=== PATIENT | female | born 1960 | race Caucasian/White ===

== ENCOUNTER 2019-01-30 18:04 | Inpatient (IN) | payer MEDICARE, MEDICAID | END 2019-02-02 11:32 | disposition home or self-care (01) | LOC: ORTHO 4S 01-31 00:35 → ER 18:04 → ED HOLD 22:31 | DX: I95.9 Hypotension, unspecified (principal); N39.0 Urinary tract infection, site not specified; G45.9 Transient cerebral ischemic attack, unspecified ==

== ENCOUNTER 2020-03-23 13:56 | Outpatient (CLI) | payer MEDICARE ==
[~2020-03-23 13:56] MED LIST: ARIP400S2 IM; ASPI-1265 PO; BUDE10.22 INH; DULA0.75 SQ; ESZO3TAB66 PO; FURO-150 PO; IRBE75TA30 PO; LEVO100T9 PO; METO25TA6 PO; ONDA4TAB6 PO; ROSU10TA2 PO
[2020-03-23] MEDS ORDERED: FLUO40CA PO (15:32)
[2020-03-23] MEDS ORDERED: LOSA25TA41 PO (15:32)
[2020-03-23] MEDS ORDERED: QUET200T30 PO (15:32)
[2020-03-23] MEDS ORDERED: HYDR-3927 PO (15:32)
[2020-03-23] MEDS ORDERED: LEVO125T8 PO (15:32)
[2020-03-23] MEDS ORDERED: LIRA0.6P2 SQ (15:32)
[2020-03-23] MEDS ORDERED: LAMO100T65 PO (15:33)
[2020-03-23] MEDS ORDERED: OXYM30SP26 BOTHNARES (15:34)
[2020-03-23 15:41] LABS: COLOR,URINE YELLOW (Yellow); GLUCOSE, URINE NEGATIVE (Neg); KETONES,URINE NEGATIVE (Neg); LEUKOCYTE ESTERASE ,URINE SMALL (Neg); NITRITES, URINE NEGATIVE (Neg); OCCULT BLOOD,URINE NEGATIVE (Neg); PROTEIN,URINE NEGATIVE (Neg); UROBILINOGEN,URINE 0.2 E.U/dL (0.2-1.0)
[2020-03-23 15:41] LABS: BASOPHILS # (AUTO) 0.1 X10'3 (0-0.2); BASOPHILS % (AUTO) 1.2 % (0-1); EOSINOPHILS # (AUTO) 0.2 X10'3 (0-0.9); EOSINOPHILS % (AUTO) 3.4 % (0-6); LYMPHOCYTES # (AUTO) 1.4 X10'3 (1.1-4.8); LYMPHOCYTES % (AUTO) 21.2 % (21-51); MEAN CORPUSCULAR HEMOGLOBIN 28.7 PG (27.0-31.0); MEAN CORPUSCULAR HGB CONC 32.7 g/dL (33.0-36.5); MEAN CORPUSCULAR VOLUME 87.7 FL (78-98); MEAN PLATELET VOLUME 9.3 FL (7.4-10.4); MONOCYTES # (AUTO) 0.4 X10'3 (0-0.9); MONOCYTES % (AUTO) 6.2 % (2-12); NEUTROPHILS # (AUTO) 4.5 X10'3 (1.8-7.7); PRE OP HEMATOCRIT 43.1 % (35.0-45.0); PRE OP HEMOGLOBIN 14.1 g/dL (12.0-16.0); PRE OP PLATELET COUNT 201 X10'3 (140-440); RED BLOOD COUNT 4.92 X10'6 (4.20-5.60); RED CELL DISTRIBUTION WIDTH 13.9 % (11.5-14.5)
[2020-03-23 15:42] LABS: CLARITY,URINE SLIGHTLY CLOUDY (Clear); UA COLLECTION TYPE CLN CATCH MIDSTREAM
[2020-03-23 15:45] LABS: HEMOGLOBIN A1C 5.7 % (4.5-6.2)
[2020-03-23 15:49] LABS: BACTERIA,URINE 4+ /HPF (Neg); MUCUS STRANDS FEW /LPF (Neg); RBC,URINE NONE SEEN /HPF (0-2); SQUAMOUS EPITHELIAL CELL,UR FEW /LPF (FEW); WBC CLUMPS,URINE FEW /HPF (NEGATIVE)
[2020-03-23 15:52] LABS: ALBUMIN 3.9 G/DL (3.4-5.0); ALBUMIN/GLOBULIN RATIO 1.1 (1.1-1.5); ALKALINE PHOSPHATASE 99 IU/L (46-116); BLOOD UREA NITROGEN 18 MG/DL (7-18); BUN/CREATININE RATIO 12.6 (6.6-38.0); CALCIUM 9.2 MG/DL (8.5-10.1); CHLORIDE 104 MMOL/L (99-107); CREATININE 1.43 MG/DL (0.40-0.90); PRE OP ALT 27 U/L (30-65); PRE OP ANION GAP 7 (8-16); PRE OP AST 20 U/L (10-37); PRE OP BILIRUB, TOTAL 0.4 MG/DL (0.0-1.0); PRE OP GLUCOSE 85 MG/DL (70-104); PRE OP POTASSIUM 4.3 MMOL/L (3.4-5.1); PRE OP SODIUM 142 MMOL/L (135-145); TOTAL CARBON DIOXIDE 30.9 MMOL/L (24-32); TOTAL PROTEIN 7.4 G/DL (6.4-8.2); eGFR 37 ML/MIN
[2020-04-01] MEDS ORDERED: METO50TA17 PO (11:13)
== END 2020-03-23 23:59 | disposition home or self-care (01) ==
LOC: PRE-OP 13:56 → EDSTATUS 04-01 08:30
PROVIDERS: ATTEND Orthopaedic Surgery
DX: Z01.818 Encounter for other preprocedural examination (principal); M17.11 Unilateral primary osteoarthritis, right knee; Z11.59 Encounter for screening for other viral diseases
CPT/HCPCS: 36415; 80053; 81001; 83036; 84443; 85025; 85610; 85730; 87077; 87081; 87088; 87186; 93005; U0003

== ENCOUNTER 2022-10-11 08:03 | Day surgery (SDC) | payer MEDICARE ==
[~2022-10-11] VITALS: Ht 162.6 cm; Wt 108.9 kg
[2022-10-11] VITALS (10 sets, daily range): BP systolic 124–143; BP diastolic 55–70
[~2022-10-11 08:03] MED LIST changes: +ASPI-107 PO; -ASPI-1265 PO; -BUDE10.22 INH; +CELE50CA2; +CHOL20002 PO; +DAPA10TA; +DEXT25CA PO; +DOCUMENT DATE & TIME OF BETA-BLOCKER PO ONE; -DULA0.75 SQ; -ESZO3TAB66 PO; -FURO-150 PO; -IRBE75TA30 PO; -LEVO100T9 PO; +LEVO200C2; +LIDOCAINE 1%/EPI 1:100,000 inj. 10 ML multi-dose vial ONE; +LOSA25TA41 PO; -METO25TA6 PO; +METO50TA17 PO; +NITR0.4T51 SL; -ONDA4TAB6 PO; +QUET50TA24 PO; -ROSU10TA2 PO; +ROSU20TA31 PO; +TOP100T PO; +cocaine 4% topical solution 4ml bottle ONE; +famotidine 20mg tablet PO ONE; +methylPREDNISolone acetate 80mg/ml inj**IM only ONE; +mupirocin 2% ointment 22GM ONE; +oxymetazoline 15 ML nasal spray NS ONE; +oxymetazoline 15 ML nasal spray NS PRN; +ringers solution, lacted 1,000 ML IV SCH
[2022-10-11] MEDS ORDERED: FENTANYL CITRATE/PF 50 MCG/1 ML VIAL ONE (11:02)
[2022-10-11] MEDS ORDERED: midazolam 1 mg/ML 2ml injection ONE (11:03)
[2022-10-11] MEDS ORDERED: LIDOcaine 2% (20mg/ml) 5ml vial ONE (11:05)
[2022-10-11] MEDS ORDERED: propofol inj 20 ML IV ONE (11:05)
[2022-10-11] MEDS ORDERED: sevoflurane 250ml liquid IH ONE (11:20)
[2022-10-11] MEDS ORDERED: dexamethasone sod phosphate 4mg/ml inj. ONE (12:35)
[2022-10-11] MEDS ORDERED: phenylephrine 10mg/ml inj. -priapism dosing ONE (12:35)
[2022-10-11] MEDS ORDERED: ePHEDrine 50MG/ML INJ. ONE (12:35)
[2022-10-11] MEDS ORDERED: ondansetron/PF 4mg/2ml inj ONE (12:35)
[2022-10-11] MEDS ORDERED: glycopyrrolate 0.2mg/ml inj ONE (12:36)
--- NOTE | 2022-10-11 12:57 | NUR ---
Received from OR via [facility], accompanied by Anesthesiologist KHADIJAH and report given by Anesthesiolgist. PT ARRIVES ON MASK 6L 02, NAD, VSS. PT AWAKENS TO VERBAL STIMULI, DROWSY, BREATHING NORMALLY. BILATERAL NASAL COTTONOIDS IN PLACE, NO DRAINAGE. Addendum: 10/11/22 at 1300 by Srini Smith RN Amended: Links added.
--- NOTE | 2022-10-11 13:07 | NUR ---
COTTONOIDS REMOVED PER MD ORDER. MINIMAL DRAINAGE FROM NOSE. Addendum: 10/11/22 at 1350 by Srini Smith RN Amended: Links added.
[2022-10-11] MEDS ORDERED: salt irrigation nasal spray 45 ML SPRAY NS PRN (13:25)
--- NOTE | 2022-10-11 13:33 | NUR ---
ABX OINTMENT APPLIED TO BILATERAL NASAL AND SALINE NASAL SPRAY PER MD ORDER. DC EDUCATION PROVIDED (WRITTEN AND VERBAL) IN DETAIL, QUESTIONS ADDRESSED. AWARE OF FOLLOW UP APPT., FOLLOW UP PLAN OF CARE, AND DC INSTRUCTIONS. TO PICK PT UP. Addendum: 10/11/22 at 1334 by Srini Smith RN Amended: Links added.
--- NOTE | 2022-10-11 13:57 | NUR ---
PT DISCHARGED INTO CARE OF , WHEELCHAIR OUT TO HOSPITAL LOBBY AND INTO POV WITHOUT INCIDENT. IV REMOVED. DENIES PAIN. VSS. Addendum: 10/11/22 at 1422 by Srini Smith RN Amended: Links added.
== END 2022-10-11 13:57 | disposition home or self-care (01) ==
LOC: PAS 08:03
PROVIDERS: ATTEND Otolaryngology
DX: J34.2 Deviated nasal septum (principal); J34.3 Hypertrophy of nasal turbinates; E03.9 Hypothyroidism, unspecified; F41.9 Anxiety disorder, unspecified; F32.9 Major depressive disorder, single episode, unspecified; N18.30 Chronic kidney disease, stage 3 unspecified; E11.22 Type 2 diabetes mellitus with diabetic chronic kidney disease; Z79.899 Other long term (current) drug therapy; Z20.822 Contact with and (suspected) exposure to COVID-19; Z98.890 Other specified postprocedural states; Z88.8 Allergy status to other drugs, medicaments and biological substances; Z96.651 Presence of right artificial knee joint
CPT/HCPCS: 30140; 30520; 36415; 82948; 87635; A6402; C9250; C9803; J1100; J2250; J2370; J2405; J2704; J3010; J3490; J7030; J7040; J7120; U0003; U0005; Z7506; Z7508; Z7512; 88300; A4618; A7000; J1040

== ENCOUNTER 2024-12-11 09:13 | Emergency (ER) | payer MEDICARE ==
[~2024-12-11] VITALS: Ht 162.6 cm; Wt 95.0 kg
[~2024-12-11 09:13] MED LIST changes: -CELE50CA2; +CELE50CA9; -DOCUMENT DATE & TIME OF BETA-BLOCKER PO ONE; -LIDOCAINE 1%/EPI 1:100,000 inj. 10 ML multi-dose vial ONE; -ROSU20TA31 PO; +ROSU20TA98 PO; -cocaine 4% topical solution 4ml bottle ONE; -famotidine 20mg tablet PO ONE; +heparin, porcine-25,000 units/D5-250ml premix IV ONE; -methylPREDNISolone acetate 80mg/ml inj**IM only ONE; -mupirocin 2% ointment 22GM ONE; -oxymetazoline 15 ML nasal spray NS ONE; -oxymetazoline 15 ML nasal spray NS PRN; -ringers solution, lacted 1,000 ML IV SCH
[2024-12-11] MEDS ORDERED: PRED20TA PO (12:13)
[2024-12-11] MEDS ORDERED: HYDR-3965 PO (12:13)
[2024-12-11] MEDS: dexamethasone sod phosphate 10mg/ml inj IM ONE (12:15)
[2024-12-11] MEDS: ketorolac trometh 15mg/ml vial 15 MG/ML ML IM ONE (12:15)
[2024-12-11] MEDS ORDERED: METH-798 PO (12:24)
[2024-12-11 12:36] VITALS: BP 108/70; PULSE 80; RESP 16; TEMP 98.4; O2SAT 98
== END 2024-12-11 12:37 | disposition home or self-care (01) ==
LOC: ER 09:14
DX: M54.14 Radiculopathy, thoracic region (principal); E78.00 Pure hypercholesterolemia, unspecified; E11.9 Type 2 diabetes mellitus without complications; I10 Essential (primary) hypertension; F31.9 Bipolar disorder, unspecified; Z88.1 Allergy status to other antibiotic agents; Z88.8 Allergy status to other drugs, medicaments and biological substances; Z79.82 Long term (current) use of aspirin; Z79.899 Other long term (current) drug therapy
CPT/HCPCS: 72070; 96372; 99284; J1100; J1644; J1885